=== PATIENT | male | born 1995 | race Caucasian/White ===

== ENCOUNTER 2017-06-18 12:16 | Emergency (ER) | payer OTHER ==
[2017-06-18 13:20] VITALS: BP 128/71
--- NOTE | 2017-06-18 13:21 | UC ---
Lower Extremity/Ankle HPI - HPI Summary HPI Summary: Pt presents with pain to dorsal aspect of right foot that began 5 days ago. He says that he is working out more and wonders if he could have pulled something, but denies specific injury. Worse with ambulation. He is able to walk unassisted. Has been taking ibuprofen, which does help. He is most concerned because a few years ago he fractured his right wrist and had little to no pain - he would like an XR of his foot today. Denies numbness or tingling. - History of Current Complaint Chief Complaint: UCLowerExtremity Stated Complaint: FOOT INJURY Time Seen by Provider: 06/18/17 13:21 Hx Obtained From: Patient Onset/Duration: Gradual Onset Severity Initially: Mild Severity Currently: Mild Pain Intensity: 3 Pain Scale Used: 0-10 Numeric Aggravating Factor(s): Standing, Ambulation Alleviating Factor(s): Rest, Elevation Able to Bear Weight: Yes - Allergies/Home Medications Allergies/Adverse Reactions: Allergies Allergy/AdvReac Type Severity Reaction Status Date / Time No Known Allergies Allergy Unverified 06/18/17 13:10 Home Medications: Home Medications FLUoxetine CAP* [PROzac CAP*] 30 mg PO DAILY 06/18/17 [History Confirmed ] Levalbuterol HFA INHALER* [Xopenex Hfa Inhaler*] 2 puff INH QID PRN 06/18/17 [ History Confirmed 06/18/17] Levocetirizine Dihydrochloride [Xyzal Allergy 24Hr] 10 mg PO BEDTIME 06/18/17 [ History Confirmed 06/18/17] PMH/Surg Hx/FS Hx/Imm Hx Previously Healthy: Yes Respiratory History: Asthma Psychological History: Anxiety - Surgical History Surgical History: Yes Surgery Procedure, Year, and Place: eye duct surgery and revision circumcision ( 1997) ear tubes (1998) ingrown toenail removed (2011, 2012) - Family History Known Family History: Positive: None - Social History Lives: With Family Alcohol Use: None Substance Use Type: None Smoking Status (MU): Never Smoked Tobacco - Immunization History Most Recent Influenza Vaccination: 3992-6801 season Most Recent Tetanus Shot: UTD Vaccination Up to Date: Yes Review of Systems Constitutional: Negative Skin: Negative Respiratory: Negative Cardiovascular: Negative Gastrointestinal: Negative Neurovascular: Negative Musculoskeletal: Other: - Right foot pain Neurological: Negative Psychological: Negative All Other Systems Reviewed And Are Negative: Yes Physical Exam - Summary Physical Exam Summary: GENERAL: NAD. WDWN. No pain distress. SKIN: No rashes, sores, ulcers, masses, lesions. NECK: Supple. Nontender. No lymphadenopathy. CHEST: CTAB. No r/r/w. No accessory muscle use. Breathing comfortably and in no distress. CV: RRR. Without m/r/g. Pulses intact PT and DP. Brisk cap refill. MSK: Mild TTP over right 4th MT. Strength 5/5. No edema or obvious bony deformities. NTTP right ankle. Negative talar tilt. No increased laxity. Negative Roann test. NEURO: Alert. Sensations intact and symmetric B/L LEs PSYCH: Age appropriate behavior. Triage Information Reviewed: Yes Vital Signs: Initial Vital Signs Temp 97.5 F 06/18/17 13:13 Pulse 69 06/18/17 13:13 Resp 16 06/18/17 13:13 BP 128/71 06/18/17 13:13 Pulse Ox 99 06/18/17 13:13 Lower Extremity Course/Dx - Course Course Of Treatment: XR: IMPRESSION: Unremarkable right foot. Suspect foot strain. Advised RICE and continue with ibuprofen. F/u prn - Differential Dx/Diagnosis Provider Diagnoses: right foot pain Discharge - Sign-Out/Discharge Documenting (check all that apply): Discharge - Discharge Plan Condition: Stable Disposition: HOME Patient Education Materials: Metatarsalgia (DC) Referrals: Macho Whitlock MD [Primary Care Provider] - Additional Instructions: If you develop a fever, shortness of breath, chest pain, new or worsening symptoms - please call your PCP or go to the ED. 1) Rest, Ice, and Elevate your foot as much as possible 2) May take ibuprofen 600-800mg every 6-8hours as needed for pain - Billing Disposition and Condition Condition: STABLE Disposition: HOME
--- NOTE | 2017-06-18 14:01 | RAD ---
Indication: Fourth metatarsal pain. 3 views of the right foot demonstrates no fracture. No other bone or joint abnormality is noted. IMPRESSION: Unremarkable right foot.
== END 2017-06-18 14:28 | disposition home or self-care (01) ==
LOC: UCEAST 12:16
DX: M79.671 Pain in right foot (principal); J45.909 Unspecified asthma, uncomplicated; F41.9 Anxiety disorder, unspecified
CPT/HCPCS: 99211; G0463

== ENCOUNTER 2018-05-11 13:44 | Emergency (ER) | payer OTHER ==
[2018-05-11 15:05] LABS: Influenza A Molecular NEGATIVE (Negative); Influenza B Molecular NEGATIVE (Negative)
--- NOTE | 2018-05-11 15:44 | UC ---
FLU HPI - HPI Summary HPI Summary: 23 y/o male presents to the urgent care c/o fever alisa nauseated and coufgh took dayquil at 1100am temp now 97.6 - History of Current Complaint Chief Complaint: UCGeneralIllness Stated Complaint: FLU-LIKE SYM Time Seen by Provider: 05/11/18 15:29 Hx Obtained From: Patient Onset/Duration: Gradual Onset, Lasting Days - 2 days, Still Present Severity Currently: Mild Severity Initially: Mild Pain Intensity: 4 - body aches Pain Scale Used: 0-10 Numeric Associated Signs & Symptoms: Positive: Myalgia, Sore Throat, Nasal Congestion - clear - Allergy/Home Medications Allergies/Adverse Reactions: Allergies Allergy/AdvReac Type Severity Reaction Status Date / Time No Known Allergies Allergy Verified 05/11/18 14:10 PMH/Surg Hx/FS Hx/Imm Hx - Surgical History Surgical History: Yes Surgery Procedure, Year, and Place: eye duct surgery and revision circumcision ( 1997) ear tubes (1998) ingrown toenail removed (2011, 2012) - Family History Known Family History: Positive: None - Social History Alcohol Use: Rare Substance Use Type: None Smoking Status (MU): Never Smoked Tobacco - Immunization History Most Recent Influenza Vaccination: [id number] season Most Recent Tetanus Shot: UTD Vaccination Up to Date: Yes Physical Exam Vital Signs: Initial Vital Signs Temp 97.6 F 05/11/18 14:06 Pulse 73 05/11/18 14:06 Resp 17 05/11/18 14:06 BP 121/72 05/11/18 14:06 Pulse Ox 98 05/11/18 14:06 Flu Course/Dx - Differential Dx/Diagnosis Differential Diagnosis/HQI/PQRI: Bronchitis, Influenza, Upper Respiratory Infection Provider Diagnosis: Viral syndrome Discharge - Sign-Out/Discharge Documenting (check all that apply): Patient Departure - d/c home All imaging exams completed and their final reports reviewed: No Studies - Discharge Plan Condition: Stable Disposition: HOME-RECOMMEND TO ED Prescriptions: Ibuprofen TAB* [Motrin TAB* 600 MG] 600 mg PO Q6H PRN #30 tab PRN Reason: Pain Patient Education Materials: Viral Syndrome (ED) Forms: *School Release Referrals: Macho Whitlock MD [Primary Care Provider] - 1 Day Additional Instructions: 1- Influenza A&B: negative, Urinalysis is negative. a CBC and CMP with Monospot were ordered and sent to lab. You will be notified of any abnormal result. Please increase fluid intake, rest, eat well, avoid strenuous exercise. Stop your daily exercise work out until symptoms improve. 2-Please take Ibuprofen PO q6-8hrs prn as instructed after meals to alleviate body aches. 3-Please f/u with your PCP tomorrow for further evaluation and treatment. However if you develop again confusion please go immediately to the ER for further evaluation and treatment. - Billing Disposition and Condition Condition: STABLE Disposition: Home-Recommend to ED
[2018-05-11 16:18] VITALS: BP 131/77
[2018-05-11 18:46] LABS: ABS Basophils 0 10^3/ul (0-0.2); ABS Eosinophils 0 10^3/ul (0-0.6); ABS Lymphocytes 2.1 10^3/ul (1.0-4.8); ABS Monocytes 0.4 10^3/ul (0-0.8); ABS Nucleated RBC 0 10^3/ul; Eosinophil % 0.5 %; Hematocrit 46 % (42-52); Hemoglobin 16.2 g/dl (14.0-18.0); Lymphocyte % 38.3 %; Mean Corpuscular HGB Conc 35 g/dl (31-36); Mean Corpuscular Hemoglobin 30 pg (27-31); Mean Corpuscular Volume 87 fL (80-94); Mean Platelet Volume 9.9 fL (7.4-10.4); Nucleated Red Blood Cells % 0.1; Platelet Count 250 10^3/ul (150-450); Red Blood Count 5.34 10^6/ul (4.00-5.40); Red Cell Distribution Width 12 % (10.5-15); White Blood Count 5.6 10^3/ul (3.5-10.8)
[2018-05-11 19:14] LABS: Albumin 5.1 g/dL (3.2-5.2); Potassium 4.6 mmol/L (3.5-5.0); Total Bilirubin 0.7 mg/dL (0.2-1.0)
[2018-05-11 19:20] LABS: Albumin/Globulin Ratio 2.1 (1-3); BUN/Creatinine Ratio 18.7 (8-20); EGFR African American 126.1 (>60); EGFR Non-African American 104.2 (>60); Globulin 2.4 g/dL (2-4); Total Protein 7.5 g/dL (6.4-8.9)
[2018-05-13 13:46] LABS: EBV Capsid Ag IgG Ab Positive (Negative); EBV Capsid Ag IgM Ab Negative (Negative); Epstein-Barr Nuclear Antigen Positive (Negative)
--- NOTE | 2018-05-13 16:58 | UC ---
- Progress Note Progress Note: 05/13/2018 EBV Capsid IgG Positive EBv Capsid IGM Negative Pt w/ previous Mononucleosis No change Brittnee Ventura PA-C Course/Dx - Diagnoses Provider Diagnoses: Viral syndrome Discharge - Sign-Out/Discharge Documenting (check all that apply): Patient Departure - d/c home All imaging exams completed and their final reports reviewed: No Studies - Discharge Plan Condition: Stable Disposition: HOME-RECOMMEND TO ED Prescriptions: Ibuprofen TAB* [Motrin TAB* 600 MG] 600 mg PO Q6H PRN #30 tab PRN Reason: Pain Patient Education Materials: Viral Syndrome (ED) Forms: *School Release Referrals: Macho Whitlock MD [Primary Care Provider] - 1 Day Additional Instructions: 1- Influenza A&B: negative, Urinalysis is negative. a CBC and CMP with Monospot were ordered and sent to lab. You will be notified of any abnormal result. Please increase fluid intake, rest, eat well, avoid strenuous exercise. Stop your daily exercise work out until symptoms improve. 2-Please take Ibuprofen PO q6-8hrs prn as instructed after meals to alleviate body aches. 3-Please f/u with your PCP tomorrow for further evaluation and treatment. However if you develop again confusion please go immediately to the ER for further evaluation and treatment. - Billing Disposition and Condition Condition: STABLE Disposition: Home-Recommend to ED
== END 2018-05-11 16:48 | disposition home health service (06) ==
LOC: UCEAST 13:44
DX: B34.9 Viral infection, unspecified (principal)
CPT/HCPCS: 36415; 80053; 81003; 85025; 86308; 86664; 86665; 99212; G0463

== ENCOUNTER 2018-08-01 23:12 | Emergency (ER) | payer OTHER ==
[2018-08-02 02:18] LABS: ABS Eosinophils 0.1 10^3/ul (0-0.6); ABS Lymphocytes 3.1 10^3/ul (1.0-4.8); ABS Monocytes 0.7 10^3/ul (0-0.8); ABS Neutrophils 4.2 10^3/ul (1.5-7.7); Eosinophil % 1.2 %; Hematocrit 46 % (42-52); Hemoglobin 16.2 g/dL (14.0-18.0); Lymphocyte % 37.6 %; Mean Corpuscular HGB Conc 36 g/dL (31-36); Mean Corpuscular Hemoglobin 31 pg (27-31); Mean Corpuscular Volume 87 fL (80-94); Mean Platelet Volume 9.6 fL (7.4-10.4); Nucleated Red Blood Cells % 0.2; Platelet Count 235 10^3/uL (150-450); Red Blood Count 5.24 10^6 /uL (4.18-5.48); Red Cell Distribution Width 12 % (10.5-15); White Blood Count 8.1 10^3/uL (3.5-10.8)
[2018-08-02] MEDS ORDERED: LORazepam INJ* 2 MG/ML 1 ML VIAL IV PUSH ONE (02:27)
[2018-08-02] MEDS ORDERED: NS 0.9% 1000 ML** 1,000 ML IV ONE (02:27)
[2018-08-02 02:36] LABS: ALT 17 U/L (7-52); Albumin 4.9 g/dL (3.2-5.2); Albumin/Globulin Ratio 1.9 (1-3); Alkaline Phosphatase 50 U/L (34-104); BUN/Creatinine Ratio 21.4 (8-20); Blood Urea Nitrogen 21 mg/dL (6-24); CO2 Carbon Dioxide 27 mmol/L (22-32); Chloride 107 mmol/L (101-111); EGFR African American 115.7 (>60); EGFR Non-African American 95.6 (>60); Globulin 2.6 g/dL (2-4); Glucose 104 mg/dL (70-100); Sodium 140 mmol/L (135-145); Total Protein 7.5 g/dL (6.4-8.9)
[2018-08-02 02:49] LABS: Creatine Kinase 84 U/L (10-223)
[2018-08-02] MEDS ORDERED: Lorazepam PYXIS KEY ONE (03:01)
[2018-08-02 03:13] LABS: Anion Gap 6 mmol/L (2-11)
--- NOTE | 2018-08-02 05:47 | ED ---
Neurological HPI - HPI Summary HPI Summary: The patient is a 23 year old male who is presenting to the [facility] with a c/o of dizziness, disorientation, irritability, and muscle spasms. The patient stated his medication which include clonidine (taken for sleep; .1 mg at night), and 20 mg of Fluoxetine (daily oral), as well as albuterol for asthma. Other symptoms that the patient stated include: right eye lid twitch, left leg weakness, increased depression, visual changes (depth perception), chills, lightheaded, and nausea. The symptoms are aggravated by nothing. The symptoms are alleviated by nothing. The patient also states that he has restless leg syndrome. Pain is rated to be 0/10 in severity. - History of Current Complaint Chief Complaint: EDNeurologicalDeficit Stated Complaint: ODD NUERO EFFECTS PER PT Time Seen by Provider: 08/02/18 02:06 Hx Obtained From: Patient Onset/Duration: Sudden Onset, Still Present Pain Intensity: 0 Pain Scale Used: 0-10 Numeric Character: Lightheaded, Weak - Left leg, Dizzy, Agitation, Visual Changes - Depth perception Aggravating: Nothing Alleviating: Nothing - Allergy/Home Medications Allergies/Adverse Reactions: Allergies Allergy/AdvReac Type Severity Reaction Status Date / Time No Known Allergies Allergy Verified 08/02/18 02:56 PMH/Surg Hx/FS Hx/Imm Hx Endocrine/Hematology History: Denies: Hx Diabetes, Hx Thyroid Disease Cardiovascular History: Denies: Hx Hypercholesterolemia, Hx Hypertension, Hx Peripheral Vascular Disease Respiratory History: Reports: Hx Asthma Denies: Hx Chronic Obstructive Pulmonary Disease (COPD) GI History: Denies: Hx Ulcer Musculoskeletal History: Reports: Hx Scoliosis Denies: Hx Arthritis, Hx Osteoporosis Sensory History: Denies: Hx Cataracts, Hx Contacts or Glasses, Hx Glaucoma Opthamlomology History: Denies: Hx Cataracts, Hx Contacts or Glasses, Hx Glaucoma Neurological History: Denies: Hx Headaches, Hx Seizures, Hx Transient Ischemic Attacks (TIA) Psychiatric History: Denies: Hx Anxiety, Hx Depression - Surgical History Surgery Procedure, Year, and Place: eye duct surgery and revision circumcision ( 1997) ear tubes (1998) ingrown toenail removed (2011, 2012) Infectious Disease History: No Infectious Disease History: Denies: Hx Hepatitis, Hx Human Immunodeficiency Virus (HIV), Traveled Outside the [place] in Last 30 Days - Family History Known Family History: Positive: Non-Contributory Family History: Reviewed and Noncontributory. - Social History Alcohol Use: Rare Substance Use Type: Reports: None Smoking Status (MU): Never Smoked Tobacco Review of Systems Positive: Chills Eyes: Other - Visual changes: Depth perception ENT: Negative Cardiovascular: Negative Respiratory: Negative Positive: Nausea Genitourinary: Negative Musculoskeletal: Other - Muscle spasms on the lower back Skin: Negative Neurological: Other - Dizziness, lightheadedness, right eye lid twitch and disorientation Positive: Weakness - Left leg weakness Psychological: Other - Irritability Positive: Depressed All Other Systems Reviewed And Are Negative: Yes Physical Exam - Summary Physical Exam Summary: VITAL SIGNS: Reviewed. GENERAL: Patient is a well-developed and nourished (MALE) who is lying comfortable in the stretcher. Patient is not in any acute respiratory distress. HEAD AND FACE: No signs of trauma. No ecchymosis, hematomas or skull depressions. No sinus tenderness. EYES: PERRLA, EOMI x 2, No injected conjunctiva, no nystagmus. EARS: Hearing grossly intact. Ear canals and tympanic membranes are within normal limits. MOUTH: Oropharynx within normal limits. NECK: Supple, trachea is midline, no adenopathy, no JVD, no carotid bruit, no c- spine tenderness, neck with full ROM CHEST: Symmetric, no tenderness at palpation LUNGS: Clear to auscultation bilaterally. No wheezing or crackles. CVS: Regular rate and rhythm, S1 and S2 present, no murmurs or gallops appreciated. ABDOMEN: Soft, non-tender. No signs of distention. No rebound no guarding, and no masses palpated. Bowel sounds are normal. EXTREMITIES: FROM in all major joints, no edema, no cyanosis or clubbing. NEURO: Alert and oriented x 3. No acute neurological deficits. Speech is normal and follows commands. SKIN: Dry and warm Triage Information Reviewed: Yes Vital Signs On Initial Exam: Initial Vitals Temp Pulse Resp BP Pulse Ox 98.6 F 93 16 153/99 97 08/01/18 23:15 08/01/18 23:15 08/01/18 23:15 08/01/18 23:15 08/01/18 23:15 Vital Signs Reviewed: Yes Diagnostics - Vital Signs Vital Signs Temp Pulse Resp BP Pulse Ox 08/02/18 04:18 79 96 08/02/18 03:08 18 08/01/18 23:15 98.6 F 93 16 153/99 97 - Laboratory Lab Results: Lab Results 08/02/18 08/02/18 Range/Units 02:10 02:10 WBC 8.1 (3.5-10.8) 10^3/uL RBC 5.24 (4.18-5.48) 10^6 /uL Hgb 16.2 (14.0-18.0) g/dL Hct 46 (42-52) % MCV 87 (80-94) fL MCH 31 (27-31) pg MCHC 36 (31-36) g/dL RDW 12 (10.5-15) % Plt Count 235 (150-450) 10^3/uL MPV 9.6 (7.4-10.4) fL Neut % (Auto) 51.9 % Lymph % (Auto) 37.6 % [place] % (Auto) 8.9 % Eos % (Auto) 1.2 % Baso % (Auto) 0.4 % Absolute Neuts (auto) 4.2 (1.5-7.7) 10^3/ul Absolute Lymphs (auto) 3.1 (1.0-4.8) 10^3/ul Absolute Monos (auto) 0.7 (0-0.8) 10^3/ul Absolute Eos (auto) 0.1 (0-0.6) 10^3/ul Absolute Basos (auto) 0.0 (0-0.2) 10^3/ul Absolute Nucleated RBC 0.0 10^3/ul Nucleated RBC % 0.2 Sodium 140 (135-145) mmol/L Potassium TNP Chloride 107 (101-111) mmol/L Carbon Dioxide 27 (22-32) mmol/L Anion Gap 6 (2-11) mmol/L BUN 21 (6-24) mg/dL Creatinine 0.98 (0.67-1.17) mg/dL Est GFR ( Amer) 115.7 (>60) Est GFR (Non-Af Amer) 95.6 (>60) BUN/Creatinine Ratio 21.4 H (8-20) Glucose 104 H (70-100) mg/dL Calcium 10.0 (8.6-10.3) mg/dL Total Bilirubin 0.60 (0.2-1.0) mg/dL AST TNP ALT 17 (7-52) U/L Alkaline Phosphatase 50 (34-104) U/L Total Creatine Kinase 84 (10-223) U/L Total Protein 7.5 (6.4-8.9) g/dL Albumin 4.9 (3.2-5.2) g/dL Globulin 2.6 (2-4) g/dL Albumin/Globulin Ratio 1.9 (1-3) Result Diagrams: 08/02/18 02:10 08/02/18 02:10 Lab Statement: Any lab studies that have been ordered have been reviewed, and results considered in the medical decision making process. - CT Brain CT CT Interpretation Completed By: Radiologist Summary of CT Findings: Brain CT reveals as per radiologist No acute intracranial abnormality. The ED Physician has reviewed this radiology report. Course/Dx - Course Course Of Treatment: The patient is a 23 year old male presenting to the [facility] with c/o of right eye lid twitch, left leg weakness, increased depression, visual changes (depth perception), chills, lightheaded, dizziness, disorientation, irritability, muscle spasms and nausea. The patient received blood work, and a CT Brain in the [facility]. Upon reviewing the lab results and the Brain CT results, the patient will be discharged home with dx of muscle spasm and anxiety. - Diagnoses Provider Diagnoses: Anxiety, Muscle spasm Discharge - Sign-Out/Discharge Documenting (check all that apply): Patient Departure - DISCHARGE HOME Patient Received Moderate/Deep Sedation with Procedure: No - Discharge Plan Condition: Stable Disposition: HOME Patient Education Materials: Muscle Spasm (ED), Anxiety (ED) Referrals: Macho Whitlock MD [Primary Care Provider] - Additional Instructions: RETURN TO THE EMERGENCY DEPARTMENT FOR CHANGING OR WORSENING SYMPTOMS. FOLLOW UP WITH YOUR PRIMARY CARE PROVIDER WITHIN ONE TO TWO DAYS - Attestation Statements Document Initiated by Scribe: Yes Documenting Scribe: Wallace Ernandez Provider For Whom Lorenaibe is Documenting (Include Credential): Dr. Gurvinedr Javed Scribtimmy Attestation: Wallace Alcala, scribed for Dr. Gurvinder Javed on 08/02/18 at 0606. Status of Scribe Document: Ready
[2018-08-02 07:25] VITALS: BP 129/72
== END 2018-08-02 07:24 | disposition home or self-care (01) ==
LOC: ED 23:12
DX: F41.9 Anxiety disorder, unspecified (principal); M62.838 Other muscle spasm; R42 Dizziness and giddiness
CPT/HCPCS: 36415; 70450; 80053; 82550; 85025; 96361; 96374; 99282; J2060